=== PATIENT | female | born 1940 | race Caucasian/White ===

== ENCOUNTER → 2017-03-21 | Outpatient (CLI) | payer OTHER, MEDICARE ==
[~2017-03-21] MED LIST: ALBUAER19 INH; ASPI81TA28 PO; CHOL1TAB42 PO; Coreg PO; FAMO1TAB68 PO; FURO20TA PO; LEVO112T2 PO; MAGN250T9 PO; SPIR25TA89 PO; UMEC1AER INH; VALS320T PO; Vit B Complex PO
--- NOTE | 2017-03-21 12:52 | DIAGNOSTIC IMAGING REPORT ---
SACRUM COCCYX MIN 2 VIEWS CLINICAL HISTORY: 76 years-old Female presenting with SACRAL PAIN. TECHNIQUE: Frontal and lateral views of the sacrum and coccyx were obtained. COMPARISON: 03/13/2014. FINDINGS: Subchondral sclerosis and joint space narrowing asymmetrically affecting the right sacroiliac joint. No change in appearance of the left sacroiliac joint. Arcuate lines grossly intact. No convincing evidence of fracture of the sacrum or coccyx allowing for suspected osteopenia. Atherosclerosis. IMPRESSION: 1. No radiographic evidence of acute osseous injury. If there is continuing clinical concern for sacral fracture, given suspected underlying osteopenia, further evaluation with noncontrast MR could be obtained. 2. Osteopenia. 3. Degenerative changes of the right sacroiliac joint. Electronically signed by: Brendan Tuttle M.D. 03/21/2017 12:50 PM Dictated Date/Time: 03/21/2017 12:48 PM
== END | disposition home or self-care (01) ==
LOC: C.RADBC 12:34
PROVIDERS: ATTEND Family Medicine
DX: M53.3 Sacrococcygeal disorders, not elsewhere classified (principal); M85.88 Other specified disorders of bone density and structure, other site

== ENCOUNTER → 2017-12-07 | Day surgery (SDC) | payer OTHER, MEDICARE ==
[2017-11-28 11:10] VITALS: Ht 162.6 cm; Wt 90.9 kg
[~2017-12-07] VITALS: Ht 162.6 cm; Wt 90.9 kg
[~2017-12-07] MED LIST changes: -ALBUAER19 INH; +CARV6.25 PO; -CHOL1TAB42 PO; +CHOL1TAB63 PO; -Coreg PO; +IOPAMIDOL INJ 61% 15 ML VIAL ONE; -LEVO112T2 PO; +LEVO125T5 PO; +LIDOCAINE HCL 1% MPF 5 ML VIAL ONE; +SODIUM CHLORIDE 0.9% INJ 10 ML VIAL ONE; -SPIR25TA89 PO; +VNTHFA/IN INH; -Vit B Complex PO
--- NOTE | 2017-12-07 14:42 | History & Physical Bridge - [place] ---
H&P Re-Evaluation Bridge Note: I have examined the patient, reviewed the History & Physical and in the interval since the performance of the History & Physical I have noted the following changes of clinical significance: No changes noted
--- NOTE | 2017-12-07 15:02 | [facility] Post Operative Brief Note ---
Immediate Operative Summary Operative Date Dec 07, 2017. Pre-Operative Diagnosis L5-S1 foraminal stenosis with right lower extremity radiculopathy L5. Post-Operative Diagnosis Same Procedure(s) Performed Lumbar Epidural Steroid Injection Surgeon Dr Sheridan Charity [employer]raiser Surgeon(s) None Estimated Blood Loss 0 Findings Consistent with Post-Op Diagnosis Specimens NA Drains None Anesthesia Type Local Complication(s) none Disposition Disposition:
--- NOTE | 2017-12-07 15:03 | Discharge Instructions ---
Discharge Instructions Date of Service Dec 07, 2017. Visit Reason for Visit: Lumbar Radiculopathy Discharge Discharge Diagnosis / Problem: low back pain Discharge Goals Goal(s): Decrease discomfort, Improve function Medications Stopped Medications Name(s): No ibuprofen or aspirin since Tuesday. Activity Recommendations Activity Limitations: resume your previous activity Anesthesia . Post Anesthesia Instructions: If you have had General Anesthesia or IV Sedation: * Do not drive today. * Resume driving when surgeon permits. * Do not make important decisions or sign legal documents today. * Call surgeon for: 1. Temperature elevations greater than 101 degrees F. 2. Uncontrollable pain. 3. Excessive bleeding. 4. Persistent nausea and vomiting. 5. Medication intolerance (nausea, vomiting or rash). * For nausea and vomiting use only clear liquids such as: tea, soda, bouillon until nausea subsides, then gradually increase diet as tolerated. * If you have any concerns or questions, call your surgeon's office. If physician is unavailable and it is an emergency, call 911 or go to the nearest emergency room. . Diet Recommendations Recommended Home Diet: resume previous diet Procedures Procedures Performed: Lumbar Epidural Steroid Injection Pending Studies Studies pending at discharge: no Medical Emergencies . Who to Call and When: Medical Emergencies: If at any time you feel your situation is an emergency, please call 911 immediately. . Non-Emergent Contact Non-Emergency issues call your: Specialist . . "Provider Documentation" section prepared by Brandon Sheridan. .
[2017-12-07 15:16] VITALS: BP 152/90; PULSE 67; O2SAT 94
--- NOTE | 2017-12-07 15:50 | OPERATIVE REPORT ---
DATE OF OPERATION: 12/07/2017 PREOPERATIVE DIAGNOSIS: L5-S1 foraminal stenosis with right lower extremity radiculopathy L5. POSTOPERATIVE DIAGNOSIS: L5-S1 foraminal stenosis with right lower extremity radiculopathy L5. PROCEDURE: Left paramedian L5-S1 intralaminar epidural steroid injection under fluoroscopic guidance. INDICATIONS: The patient is a 77-year-old white female with a several-year history of low back pain. She has problems with standing and walking. It is improved with sitting and lying down. She has pain that goes into the right sciatic notch area. She has not responded to conservative measures and presents today for an epidural steroid injection. PHYSICAL EXAMINATION: GENERAL: Pleasant female seated comfortably, in no apparent distress. MUSCULOSKELETAL: Her lumbar paraspinal muscles were palpated and noted to be nontender. She has some point tenderness to palpation of her right sciatic notch. No issues with forward flexion or extension. She has normal lower extremity strength. Negative seated straight leg raises. Positive Alcon maneuver on the right and negative on the left. Deep tendon reflexes are trace at the patellas and the ankles, intact sensation distally. CONSENT: Verbal and written consent was obtained from the patient. Risks and benefits were reviewed. Risks include but are not limited to epidural abscess, epidural hematoma, allergic reaction, dural puncture. The patient wishes to proceed. DESCRIPTION OF PROCEDURE: The patient was taken back to the special procedures room of [facility]. She was maintained in a prone position. Backside was cleansed with Betadine x3 and a dry sterile dressing was applied. Fluoroscope was used to identify the L5-S1 intralaminar space and overlying skin on the right side was anesthetized with 4 mL of lidocaine 1% with a 25-gauge 1.5-inch needle. A 22-gauge 3.5-inch Tuohy needle was then directed down towards the intralaminar space. There was loss of resistance with depth of 7 cm. Isovue-300 contrast 1 mL was injected in which demonstrated an epidural uptake pattern. She then underwent injection after negative aspiration of 40 mg of Depo-Medrol and 4 mL of preservative-free sodium chloride. Injection was well tolerated and reproduced a familiar transient sensation into the right sciatic notch area that also traveled all the way down to the leg and the foot which was transient. DISPOSITION: 1. The patient is taken out into the discharge recovery area where she will be discharged home once discharge criteria have been met. 2. Follow up in the [facility] office in 2-4 weeks. I attest to the content of the Intraoperative Record and any orders documented therein. Any exception s are noted below.
== END | disposition home or self-care (01) ==
LOC: X.SURG 13:50
PROVIDERS: ATTEND Physical Medicine & Rehabilitation
DX: M48.061 Spinal stenosis, lumbar region without neurogenic claudication (principal); M54.5 Low back pain; E03.9 Hypothyroidism, unspecified; J44.9 Chronic obstructive pulmonary disease, unspecified; I10 Essential (primary) hypertension; E21.3 Hyperparathyroidism, unspecified; E05.00 Thyrotoxicosis with diffuse goiter without thyrotoxic crisis or storm; Z88.8 Allergy status to other drugs, medicaments and biological substances; Z79.899 Other long term (current) drug therapy